=== PATIENT | male | born 1945 | race Caucasian/White ===

== ENCOUNTER 2021-03-09 03:42 | Emergency (ER) | payer MEDICARE, SELFPAY ==
[2021-03-09] VITALS (21 sets, daily range): BP systolic 114–170; BP diastolic 56–78; PULSE 60–79; RESP 18–27; TEMP 36.6–39.3; O2SAT 68–99; BMI 18.7
[2021-03-09 03:45] LABS: ABG Base Excess -0.2 mmol/L (-2.4-2.3); ABG HCO3 22.6 mmhg (22.0-26.0); ABG Oxygen Saturation 92 % (90-100); ABG PCO2 27.9 mmhg (35.0-45.0); ABG PH 7.53 mmol/L (7.35-7.45); ABG TCO2 23.4 mmhg (23-27)
[2021-03-09 03:46] LABS: Allen's Test Acceptable; Source Right Radial
--- NOTE | 2021-03-09 03:49 | XR_ITS ---
PROCEDURE INFORMATION: Exam: XR Chest Exam date and time: 03/09/2021 3:49 AM Age: 76 years old Clinical indication: Cough; Patient HX: Covid positive; Additional info: AMS TECHNIQUE: Imaging protocol: XR of the chest. Views: 1 view. COMPARISON: No relevant prior studies available. FINDINGS: Lungs: Bilateral pulmonary opacities most consistent with viral pneumonia. Pleural spaces: No pleural effusion. No pneumothorax. Heart/Mediastinum: Unremarkable cardiomediastinal silhouette. Bones/joints: No acute osseous findings. IMPRESSION: Bilateral pulmonary opacities most consistent with viral pneumonia. Recommend imaging follow-up to document complete resolution.
--- NOTE | 2021-03-09 03:49 | CT_ITS ---
PROCEDURE INFORMATION: Exam: CT Head Without Contrast Exam date and time: 03/09/2021 3:49 AM Age: 76 years old Clinical indication: Altered mental status/memory loss; Patient HX: Covid positive; Additional info: AMS TECHNIQUE: Imaging protocol: Computed tomography of the head without contrast. Radiation optimization: All CT scans at this facility use at least one of these dose optimization techniques: automated exposure control; mA and/or kV adjustment per patient size (includes targeted exams where dose is matched to clinical indication); or iterative reconstruction. COMPARISON: No relevant prior studies available. FINDINGS: Brain: No hemorrhage. No mass effect. Cerebral ventricles: No ventriculomegaly. Paranasal sinuses: Extensive partial opacification of multiple sinuses. No significant air-fluid level. Mastoid air cells: Visualized mastoid air cells are well aerated. Bones/joints: No acute fracture. Soft tissues: The visualized soft tissue is grossly unremarkable. IMPRESSION: No evidence of acute intracranial hemorrhage. Extensive partial opacification of multiple sinuses without significant air-fluid level.
[2021-03-09 04:03] LABS: Basophils % 0.2 % (0.1-2.0); Eosinophils % 0.6 % (0.1-12.0); Hematocrit 39.2 % (42.0-52.0); Hemoglobin 13.2 g/dL (14.1-18.0); Lymphocytes # 0.5 K/mm3 (0.7-4.5); Lymphocytes % 13.5 % (10-50); Mean Corpuscular HGB Conc 33.5 g/dL (31.8-35.4); Mean Corpuscular Hemoglobin 31.1 pg (27.0-31.2); Mean Corpuscular Volume 92.6 fl (80-94); Mean Platelet Volume 7.5 fl (7.4-10.4); Monocytes # 0.2 K/mm3 (0.1-1.0); Monocytes % 5.7 % (1.7-9.3); Neutrophils # 2.9 K/mm3 (1.8-7.8); Platelet Count 187 K/mm3 (142-424); Red Blood Count 4.24 M/mm3 (4.60-6.20); Red Cell Distribution Width 12.7 % (11.5-17.5); White Blood Count 3.6 K/mm3 (4.8-10.8)
[2021-03-09 04:05] LABS: Chloride 92 mmol/L (98-107); Sodium 128 mmol/L (136-145)
[2021-03-09 04:06] LABS: Potassium 3.5 mmoL/L (3.5-5.1)
[2021-03-09 04:08] LABS: Alanine Aminotransferase 29 U/L (12-78); Alkaline Phosphatase 78 U/L (38-126); Anion Gap 12.5 mEq/L (5-15); Aspartate Amino Transferase 47 U/L (17-59); Bilirubin,Total 0.4 mg/dl (0.2-1.3); Blood Urea Nitrogen 23 mg/dl (9-20); Carbon Dioxide 27 mmol/L (22.0-30.0); Creatinine Clearance Estimated 49 mL/min (50-200); Estimated Glomerular Filt Rate 59 ml/min (>60); GFR (African American) 72 ML/MIN (>60)
[2021-03-09 04:09] LABS: Albumin Level 3.4 g/dl (3.5-5.0); Albumin/Globulin Ratio 1.4 (1.1-1.8); Calcium 8.5 mg/dl (8.4-10.2); Globulin 2.4 g/dL (1.3-3.2); Glucose 144 mg/dl (74-100); Total Protein,Serum 5.8 g/dl (6.3-8.2)
--- NOTE | 2021-03-09 04:12 | HMH.EDAMS ---
ED Disposition Clinical Impression: COVID-19, COVID-19 with pulmonary comorbidity, Acute delirium Disposition: Xfer Short-Term Hosp Condition on Discharge: Fair Instructions: DI for Altered Mental Status Referrals: Provider,Referral, [Primary Care Provider] - - Critical Care Critical Care Time: No Attestation: On 03/09/21, the high probability of a clinically significant, sudden or life threatening deterioration of the following system(s) required my full and direct attention, intervention and personal management. The time I documented below is in addition to time spent performing reported procedures but includes the following listed in this critical care notation. Medical Decision Making - Medical Records Medical records reviewed: Yes: I reviewed the patient's medical records. - Kade Inquiry Pt receiving controlled substance: No Vital Signs: 03/09/21 03:42 03/09/21 04:30 03/09/21 05:00 Temperature 102.7 F H 101.4 F H Temperature Source Rectal Rectal Pulse Rate 79 75 Pulse Rate [Right Brachial] 79 Respiratory Rate 27 H 23 25 H Blood Pressure 149/64 H 130/62 Blood Pressure [Right Arm] 129/73 Blood Pressure Mean [Right Arm] 91 Blood Pressure Source Automatic Cuff Automatic Cuff Blood Pressure Source [Right Arm] Automatic Cuff Blood Pressure Position Sitting Sitting Blood Pressure Position [Right Arm] Sitting 02 Sat by Pulse Oximetry 88 L 90 L 94 L Oxygen Delivery Method Room Air Nasal Cannula Nasal Cannula Oxygen Flow Rate (LPM) 2 2 03/09/21 05:30 03/09/21 06:51 Temperature 99.5 F Temperature Source Oral Pulse Rate 75 74 Pulse Rate [Right Brachial] Respiratory Rate 18 18 Blood Pressure 117/56 L 122/57 L Blood Pressure [Right Arm] Blood Pressure Mean [Right Arm] Blood Pressure Source Automatic Cuff Automatic Cuff Blood Pressure Source [Right Arm] Blood Pressure Position Sitting Sitting Blood Pressure Position [Right Arm] 02 Sat by Pulse Oximetry 89 L 91 L Oxygen Delivery Method Nasal Cannula Nasal Cannula Oxygen Flow Rate (LPM) 2 3.5 - Lab Data Lab results reviewed: Yes: I reviewed the patient's lab results. Lab Results 03/09/21 03:42: Specimen Source Right radial, ABG pH 7.53 H, ABG pCO2 27.9 L, ABG pO2 59.0 L, ABG HCO3 22.6, ABG Total CO2 23.4, ABG O2 Saturation 92, ABG Base Excess -0.2, Best Test Acceptable 03/09/21 03:43: WBC 3.6 L, RBC 4.24 L, Hgb 13.2 L, Hct 39.2 L, MCV 92.6, MCH 31.1, MCHC 33.5, RDW 12.7, Plt Count 187, MPV 7.5, Neut % (Auto) 80.0, Lymph % (Auto) 13.5, Boyd % (Auto) 5.7, Eos % (Auto) 0.6, Baso % (Auto) 0.2, Neut # (Auto) 2.9, Lymph # (Auto) 0.5 L, Boyd # (Auto) 0.2, Eos # (Auto) 0.0, Baso # (Auto) 0.0, ESR 66 H 03/09/21 03:43: Sodium 128 L, Potassium 3.5, Chloride 92 L, Carbon Dioxide 27, Anion Gap 12.5, BUN 23 H, Creatinine 1.20, Estimated Creat Clear 49, Estimated GFR 59, Est GFR ( Amer) 72, Glucose 144 H, Calcium 8.5, Total Bilirubin 0.4, AST 47, ALT 29, Alkaline Phosphatase 78, C-Reactive Protein 50.6 H, Total Protein 5.8 L, Albumin 3.4 L, Globulin 2.4, Albumin/Globulin Ratio 1.4 03/09/21 03:43: Lactate 1.0 03/09/21 03:43: Troponin I < 0.01, Procalcitonin 0.105 03/09/21 03:43: NT-Pro-B Natriuret Pep 128 H 03/09/21 03:43: SARS-CoV-2 (PCR) Detected A, Influenza A Untype (PCR) Not detected, Influenza Type B (PCR) Not detected 03/09/21 03:43: Urine Color Yellow, Urine Appearance Clear, Urine pH 6.0, Ur Specific [place] 1.020, Urine Protein 1+, Urine Glucose (UA) Negative, Urine Ketones 1+, Urine Blood 1+, Urine Nitrate Negative, Urine Bilirubin Negative, Urine Urobilinogen 0.2, Ur Leukocyte Esterase Negative, Urine RBC 5-10, Urine WBC 3-5, Ur Squamous Epith Cells Occasional, Urine Bacteria 1+ Result diagrams: 03/09/21 03:43 03/09/21 03:43 Orders (Tests/Meds): ED MEDICATIONS Discontinued Medications Generic Name Dose Route Start Last Admin Trade Name Freq PRN Reason Stop Dose Admin Acetaminophen 650 mg 03/09/21 04:12 03/09
[2021-03-09 04:14] LABS: C-Reactive Protein 50.6 mg/L (0-4)
[2021-03-09 04:21] LABS: NT Pro Brain Natriuretic Pep. 128 pg/mL (0-125)
[2021-03-09 04:27] LABS: Troponin I < 0.01 ng/ml (0.00-0.034)
[2021-03-09 04:28] LABS: Procalcitonin 0.105 ng/mL (0.0-2.0)
[2021-03-09 04:38] LABS: Erythrocyte Sedimentation Rate 66 mm/hr (0-20)
[2021-03-09 05:32] LABS: Influenza A, PCR Not Detected (NotDetected); Influenza B, PCR Not Detected (NotDetected)
[2021-03-09 06:00] LABS: Coronavirus 19, PCR Detected (NotDetected)
[2021-03-09 06:02] LABS: Microscopic,Cath URINE MICROSCOPIC (MICROSCOPIC)
[2021-03-09 06:05] LABS: Appearance,Urine/Cath CLEAR (Clear); Bilirubin,Cath Negative (Negative); Blood, Urine/Cath 1+ (Negative); Color,Urine/Cath YELLOW (Yellow); Glucose,Urine/Cath (UA) Negative (Negative); Ketones,Urine/Cath 1+ (Negative); Leukocyte Esterase,Cath Negative (Negative); Nitrate,Cath Negative (Negative); Protein,Urine/Cath 1+ (Negative); Urobilinogen,Cath 0.2 EU/dl (0.2)
--- NOTE | 2021-03-09 06:09 | ECG_ITS ---
APPROVED REPORT Exam: Resting ECG HR:79 bpm ECG Measurements Heart Rate 79 AXES WV 156 P 67 QRSd 90 QRS 61 QT 416 T 50 QTc 477 Conclusion Normal sinus rhythm Normal ECG Electronically signed by : Ramesh Muniz MD 03/10/2021 20:50:35
[2021-03-09 06:34] LABS: Bacteria,Urine/Cath 1+ /lpf; Squamous Epithelial Ur./Cath Occasional #/hpf (0-5)
--- NOTE | 2021-03-09 06:59 | PC.NURSE ---
[facility] called in regards to transfer. [facility] info given and [facility] will call [facility]
--- NOTE | 2021-03-09 07:45 | PC.NURSE ---
speaking with [facility]
[2021-03-09 08:04] LABS: Troponin I < 0.01 ng/ml (0.00-0.034)
--- NOTE | 2021-03-09 08:05 | PC.NURSE ---
Pt continues to pull off O2 sensor, causing low perfusion and low readings on the monitor. Upon nurse assessment, O2 sensor was held on pt's right middle finger, good pleth obtained, and a reading of 96% on O2 @ 2LPM via NC was observed.
--- NOTE | 2021-03-09 10:29 | PC.NURSE ---
paperwork that was requested by [facility] faxed at t his time
[2021-03-09 11:14] LABS: Troponin I < 0.01 ng/ml (0.00-0.034)
--- NOTE | 2021-03-09 11:24 | PC.NURSE ---
updated about pt transfer and pt status.
--- NOTE | 2021-03-09 11:36 | PC.NURSE ---
Report given to Zeinab CUI
--- NOTE | 2021-03-09 12:10 | PC.NURSE ---
[facility] team to come and transport pt to [facility]
[2021-03-09 13:42] LABS: ABG Base Excess 2.6 mmol/L (-2.4-2.3); ABG PCO2 41.2 mmhg (35.0-45.0); ABG PH 7.44 mmol/L (7.35-7.45); ABG PO2 60.9 mmhg (80-100); ABG TCO2 28.3 mmhg (23-27)
[2021-03-09 13:43] LABS: ABG Oxygen Saturation 90 % (90-100); Allen's Test Patient Unable; Oxygen 100% %; Source Right Radial; Tidal Volume 40 L; Vent Rate VAPOTHERM
--- NOTE | 2021-03-09 13:43 | PC.NURSE ---
Around 12pm I spoke with Carmella Benson about transport and she advised at this time to contact the strike team to see about transport. I called the transport center and provided them with patient information and pt destination which was [facility] in [place]. Advised he would give me a call back. Approx. 10-15 mins received a call back and they advised that we would have a truck to us in approx. 1hr to 1 1/2hrs. Notified Kelley that Strike team had been contacted and would be enroute to transport patient.
== END 2021-03-09 13:43 | disposition short-term general hospital (02) ==
PROVIDERS: Emergency Provider Emergency Medicine
DX: U07.1 COVID-19 (principal); R41.82 Altered mental status, unspecified; R06.02 Shortness of breath
CPT/HCPCS: 36415; 70450; 71045; 80053; 81001; 82803; 83605; 83880; 84145; 84484; 85025; 85651; 86140; 87040; 87077; 87186; 93005; 96365; 96375; 99285; C9803; U0003; U0005